=== PATIENT | female | born 1945 | race African-American/Black ===

== ENCOUNTER 2016-11-06 15:00 | Emergency (ER) | payer OTHER ==
[~2016-11-06] VITALS: Wt 71.5 kg
[2016-11-06] MEDS ORDERED: ALBUTEROL 0.5% (NEB) 2.5 MG/0.5 ML AMP HHN STA (16:55)
[2016-11-06] MEDS ORDERED: IPRATROPIUM (NEB) 0.5 MG/2.5 ML AMP HHN ONE (17:00)
[2016-11-06] MEDS ORDERED: DEXAMETHASONE 10 MG/ML 1 ML INJ IM ONE (17:00)
--- NOTE | 2016-11-06 17:52 | RADRPT ---
PROCEDURE: Chest x-ray CLINICAL INDICATION: Shortness of breath TECHNIQUE: Chest single view COMPARISON: None FINDINGS: The heart is normal in size. The pulmonary vessels are normal in caliber. The lungs are clear. Th e costophrenic angles are sharp. The visualized bony thorax is unremarkable. IMPRESSION: No acute cardiopulmonary disease. Mild atherosclerotic aortic calcification RPTAT: HH .Shree Jose MD, Date Time Electronically viewed and signed by .Shree Jose MD, MD on 11/06/2016 17:52 .W/
[2016-11-06] MEDS ORDERED: PRED20TA PO (18:06)
[2016-11-06] MEDS ORDERED: ALBU2.5V3 NEB (18:07)
--- NOTE | 2016-11-06 18:10 | ERD ---
ER Documentation Chief Complaint Date/Time DATE: 11/06/16 TIME: 18:08 Chief Complaint cough and congestion for the past month, increasingly worse. failed po abx HPI This 71 year feel presents with cough congestion over the last month. States she 's had 2 rounds of antibiotics and continues to wheeze. She is using a nebulizer at home. She's not had any serious patient has fevers, chest pain, vomiting, abdominal pain. ROS All systems reviewed and are negative except as per history of present illness. Medications Home Meds Active Scripts Albuterol Sulfate* (Albuterol Sulfate* Neb) 0.083%-3 Ml Neb, 2.5 MG NEB Q4 Y for SHORTNESS OF BREATH, #30 EA Prov:VERONICA GARIBAY MD 11/06/16 Prednisone* (Prednisone*) 20 Mg Tab, 40 MG PO DAILY for 4 Days, TAB Start 11/07/2016. Prov:VERONICA GARIBAY MD 11/06/16 PMhx/Soc Hx Alcohol Use: No Hx Substance Use: No Hx Tobacco Use: No Smoking Status: Never smoker Physical Exam Vitals Vital Signs Date Time Temp Pulse Resp B/P Pulse Ox O2 Delivery O2 Flow Rate FiO2 11/06/16 17:15 70 20 95 21 11/06/16 15:04 98.8 78 20 147/74 97 Physical Exam Const: [] Alert, not ill-appearing speakING complete sentences. Head: Atraumatic Eyes: Normal Conjunctiva ENT: Normal External Ears, Nose and Mouth. Neck: Full range of motion..~ No meningismus. No JVD. Resp: Clear to auscultation bilaterally. Scattered mild wheeze without rales or retractions appreciated. Cardio: Regular rate and rhythm, no murmurs Abd: Soft, non tender, non distended. Normal bowel sounds Skin: No petechiae or rashes Back: No midline or flank tenderness Ext: No cyanosis, or edema Neur: Awake and alert Psych: Normal Mood and Affect Results 24 hrs Current Medications Medications (Trade) Dose Ordered Sig/Cassandra Route PRN Reason Start Time Stop Time Status Last Admin Dose Admin Dexamethasone (Decadron) 8 mg ONCE ONCE IM 11/06/16 17:00 11/06/16 17:01 DC 11/06/16 17:05 Albuterol (Proventil 0.5% (Neb)) 5 mg ONCE STAT HHN 11/06/16 16:55 11/06/16 16:57 DC 11/06/16 17:04 Ipratropium [place] (Atrovent 0.02% (Neb)) 0.5 mg ONCE ONCE N 11/06/16 17:00 11/06/16 17:01 DC 11/06/16 17:04 Procedures/MDM Chest X-ray 1V Interpreted by me: Soft Tissue: No acute abnormalities Bones: No acute abnormalities Mediastinum/Cardiac Silhouette/Lungs: Impression-normal 1 view chest x-ray EKG: Rate/Rhythm: [Normal Sinus Rhythm] rate equals 67 QRS, ST, T-waves: [No changes consistent w/ acute ischemia] Impression: [No evidence of ischemia or arrhythmia] Patient was given Decadron 8 mg IM albuterol treatment. Patient clear lungs on serial exam without wheezing or rales appreciated. Patient has signs and symptoms of a URI with wheeze or possible COPD exacerbation. His no evidence of hypoxemia, signs or symptoms to suggest acute cornea syndrome, pulmonary embolism, CHF patient will be discharged home with instructions to continue her nebulizer will give her a short course prednisone. She should return for fevers , shortness of breath, chest pain, new or worsening symptoms. Departure Diagnosis: Primary Impression: Bronchitis Condition: Stable Patient Instructions: Copd Flare Additional Instructions: X-ray read as normal. Recheck for new or worsening symptoms or with primary care doctor. VERONICA GARIBAY MD Nov 06, 2016 18:09
== END 2016-11-06 18:19 | disposition home or self-care (01) ==
LOC: FTE 15:00
DX: J40 Bronchitis, not specified as acute or chronic (principal); R06.02 Shortness of breath
CPT/HCPCS: 71010; 94664; 96372; 99284; J1100; 93005

== ENCOUNTER 2017-02-27 13:55 | Emergency (ER) | payer SELFPAY ==
[~2017-02-27] VITALS: Ht 160 cm; Wt 78.0 kg
[~2017-02-27 13:55] MED LIST: ALBU2.5V3 NEB; PRED20TA PO
[2017-02-27 14:04] VITALS: Ht 160 cm; Wt 78.0 kg
--- NOTE | 2017-02-27 15:40 | ERD ---
ER Documentation Chief Complaint Date/Time DATE: 02/27/17 TIME: 15:38 Chief Complaint L heel injury last tuesday, c/o foot swelling and pain HPI 71-year-old woman presents with left heel pain after being struck by a metal shopping cart about 2 days ago. She describes some skin breakdown to the posterior left heel and generalized left foot pain and some swelling. She has had no difficulty ambulating, no calf or leg swelling, no chest pain or shortness of breath, no paresis or paresthesias. ROS All systems reviewed and are negative except as per history of present illness. Medications Home Meds Active Scripts Ibuprofen* (Ibuprofen*) 600 Mg Tablet, 600 MG PO Q8 for PAIN AND/OR INFLAMMATION , #30 TAB Prov:CAITLIN AGARWAL MD 02/27/17 Neomycin Harden/Bacitrac Zn/Poly (Triple Antibiotic Ointment) 1 Each Oint.pack, 1 EACH TP TID for 7 Days, #1 TUB Prov:CAITLIN AGARWAL MD 02/27/17 Albuterol Sulfate* (Albuterol Sulfate* Neb) 0.083%-3 Ml Neb, 2.5 MG NEB Q4 Y for SHORTNESS OF BREATH, #30 EA Prov:VERONICA GARIBAY MD 11/06/16 Prednisone* (Prednisone*) 20 Mg Tab, 40 MG PO DAILY for 4 Days, TAB Start 11/07/2016. Prov:VERONICA GARIBAY MD 11/06/16 Allergies Allergies: Coded Allergies: No Known Allergy (Unverified , 02/27/17) PMhx/Soc Hypertension, previous breast carcinoma status post double mastectomy, chronic obstructive pulmonary disease Medical and Surgical Hx: pt denies Medical Hx, pt denies Surgical Hx Hx Alcohol Use: No Hx Substance Use: No Hx Tobacco Use: No FmHx Family History: No diabetes Physical Exam Vitals Vital Signs Date Time Temp Pulse Resp B/P Pulse Ox O2 Delivery O2 Flow Rate FiO2 02/27/17 14:04 98.1 83 18 133/77 95 Physical Exam GENERAL: Well-developed, well-nourished, well-hydrated, in no apparent distress , looks nontoxic in appearance HEENT: Moist mucous membranes, pink conjunctiva, no cervical spine tenderness or step-off deformities, no goiter, no jaundice or icterus, extraocular movements intact without pain. No submandibular induration, and no pharyngeal erythema NEURO: Alert and oriented 3, cranial nerves II through XII intact bilaterally, pupils equal round reactive to light, no focal deficits or facial asymmetry, sensation intact distally Strength 5/5 in upper and lower extremities bilaterally CARDIAC: Regular rate and rhythm, no murmurs rubs or gallops LUNGS: Clear bilaterally no wheezing crackles or stridor ABDOMEN: Soft nontender, no guarding, no rigidity, no rebound, no psoas sign no obturator sign. Normoactive bowel sounds SKIN: Warm and dry to touch, superficial abrasion to the posterior heel of the left foot, no skin induration, erythema contusions, or hematomas noted EXTREMITIES: No clubbing cyanosis or edema, calves are bilaterally symmetrical, no Homans sign, no popliteal cord sign. Distal pulses equal and bilateral PSYCH: Normal affect without agitation or irritability Results 24 hrs Current Medications Medications (Trade) Dose Ordered Sig/Cassandra Route PRN Reason Start Time Stop Time Status Last Admin Dose Admin Ibuprofen (Motrin) 600 mg ONCE ONCE PO 02/27/17 16:00 02/27/17 16:01 DC 02/27/17 15:49 Neomycin/ Polymyxin/ Bacitracin (Neosporin Topical Oint) 1 applic ONCE ONCE TOP 02/27/17 16:00 02/27/17 16:01 DC Neomycin/ Polymyxin/ Bacitracin (Neosporin (Ud Pkt)) 2 applic NOW TOP 02/27/17 16:00 02/27/17 16:01 DC 02/27/17 16:33 Procedures/MDM Triple antibiotic ointment was applied to the abrasion the posterior left heel and gauze dressing was also applied. I administered 600 mg ibuprofen p.o. for her symptoms. X-ray left foot 3V Interpreted by me: Bones: No fracture Joints: No dislocation Foreign body: None Differential diagnoses considered, included but not limited to DVT, foreign body , abscess, cellulitis, fractures, and dislocations. Patient feels much better at this time, and vital signs are normal, symptoms have improved. I did give strict instructions to return to the ED if symptoms continue or worsen, patient will otherwise follow-up with primary care physician. Patient understood instructions and agreed to plan. Disclaimer: Inadvertent spelling or grammatical errors are likely due to EHR/ dictation software use and do not reflect on the overall quality of patient care. Departure Diagnosis: Primary Impression: Foot sprain Encounter type: initial encounter Laterality: left Qualified Code: S93.602A - Foot sprain, left, initial encounter Additional Impression: Abrasion Condition: Good CAITLIN AGARWAL MD February 27, 2017 15:40
[2017-02-27] MEDS ORDERED: NEOMYC/POLYMYX/BACIT 30 GM OINT TOP ONE (16:00)
[2017-02-27] MEDS ORDERED: NEOMYC/POLYMYX/BACIT 0.9 GM OINT TOP SCH (16:00)
[2017-02-27] MEDS ORDERED: IBUPROFEN 600 MG TAB PO ONE (16:00)
--- NOTE | 2017-02-27 16:54 | RADRPT ---
PROCEDURE: XR Left Foot. CLINICAL INDICATION: Left foot pain. TECHNIQUE: Three views. Frontal, lateral, and oblique. COMPARISON: None. FINDINGS: There is no fracture or dislocation. The soft tissues are normal. There is a small subarticular cyst in the first metatarsal head measuring 0.4 cm. There is no other lytic lesion. The articular surfaces are otherwise intact. There is no radiopaque foreign body. IMPRESSION: 1. Small subarticular cyst in the first metatarsal head measuring 0.4 cm. 2. Otherwise unremarkable images of the left foot. RPTAT: QQ .Jason Gaytan MD, Date Time Electronically viewed and signed by .Jason Gaytan MD, on 02/27/2017 16:53 .R/
[2017-02-27] MEDS ORDERED: IBUP-1542 PO (17:01)
[2017-02-27] MEDS ORDERED: NEOM1PAC TP (17:01)
== END 2017-02-27 18:29 | disposition home or self-care (01) ==
LOC: FTE 13:55
DX: S93.602A Unspecified sprain of left foot, initial encounter (principal); I10 Essential (primary) hypertension; J44.9 Chronic obstructive pulmonary disease, unspecified; S90.812A Abrasion, left foot, initial encounter; W22.8XXA Striking against or struck by other objects, initial encounter; Y92.9 Unspecified place or not applicable; Z85.3 Personal history of malignant neoplasm of breast

== ENCOUNTER 2017-12-22 17:18 | Emergency (ER) | END 2017-12-22 21:24 | disposition home or self-care (01) ==

== ENCOUNTER 2018-05-02 10:54 | Inpatient (IN) | END 2018-05-03 11:27 | disposition home or self-care (01) | DRG 192 ==